=== PATIENT | female | born 1950 | race Two or more races ===

== ENCOUNTER 2023-05-09 11:42 | Emergency (ER) | payer SELFPAY ==
[~2023-05-09] VITALS: Ht 157.5 cm; Wt 52.2 kg
[2023-05-09 11:45] VITALS: BP 115/85; RESP 15; O2SAT 99
[2023-05-09 12:44] VITALS: PULSE 104
== END 2023-05-09 16:07 | disposition left against medical advice (07) ==
LOC: ER 11:42 → EDBD 11:42 → ER 16:07
DX: J18.9 Pneumonia, unspecified organism (principal); E11.9 Type 2 diabetes mellitus without complications; I10 Essential (primary) hypertension; Z53.29 Procedure and treatment not carried out because of patient's decision for other reasons
CPT/HCPCS: 93005